=== PATIENT | male | born 1955 | race Caucasian/White ===

== ENCOUNTER 2018-03-10 10:13 | Emergency (ER) | payer BC ==
[2018-03-10] MEDS ORDERED: Ketorolac 30 MG/ML SDV IM ONE (10:21)
--- NOTE | 2018-03-10 10:26 | EDM.PDOC ---
ED HPI GENERAL MEDICAL PROBLEM - General Chief Complaint: General Stated Complaint: LEFT WRIST PAIN AND SWOLLEN Time Seen by Provider: 03/10/18 10:15 Source of Information: Reports: Patient, Family History Limitations: Reports: No Limitations - History of Present Illness INITIAL COMMENTS - FREE TEXT/NARRATIVE: Devin comes into [facility] ED with a tender, swollen, and painful L wrist over the past 24 hrs. There is no injury hx. He did start a new medication yesterday for CA of Prostate. He also recalls a swollen wrist about 10 years ago, suspected gout. He took Ibuprofen last pm without relief. - Related Data Allergies Allergy/AdvReac Type Severity Reaction Status Date / Time No Known Allergies Allergy Verified 03/10/18 11:05 Home Meds: Home Meds Indomethacin [Indocin] 25 mg PO BID #20 cap 03/10/18 [Rx] Tamsulosin [Tamsulosin 24 Hr] 0.4 mg PO DAILY 03/10/18 [History] Past Medical History Oncologic (Cancer) History: Reports: Prostate Review of Systems - Review of Systems Review Of Systems: ROS reveals no pertinent complaints other than HPI. ED EXAM, GENERAL - Physical Exam Exam: See Below Exam Limited By: No Limitations General Appearance: Alert, WD/WN, Mild Distress Head: Normocephalic Neck: Normal Inspection, Supple, Non-Tender, Full Range of Motion Respiratory/Chest: Lungs Clear, Normal Breath Sounds Cardiovascular: Regular Rate, Rhythm, No Murmur Back Exam: Normal Inspection Extremities: Joint Swelling (L wrist), Limited Range of Motion (L wrist), Increased Warmth, Redness Neurological: Alert, Oriented, CN II-XII Intact, Normal Cognition, Normal Gait, No Motor/Sensory Deficits Psychiatric: Normal Affect, Normal Mood Skin Exam: Warm, Dry, Intact, Erythema (L wirst), Increased Warmth Lymphatic: No Adenopathy Course - Vital Signs Text/Narrative:: I reviewed x rays of L wrist, no diagnostic abnormality. Gout or psuedogout is suspected. I administered Toradol 30 mg IM before discharge. Last Recorded V/S: Last Vital Signs Temp 36.4 C 03/10/18 10:40 Pulse 76 03/10/18 10:40 Resp 18 03/10/18 10:40 BP 135/76 03/10/18 10:40 Pulse Ox 100 03/10/18 10:40 - Orders/Labs/Meds Orders: Active Orders 24 hr Category Date Time Status Wrist Comp Min 3V Lt [CR] Stat Exams 03/10/18 10:19 Taken URIC ACID [CHEM] Stat Lab 03/10/18 10:45 Ordered Labs: Laboratory Tests 03/10/18 03/10/18 Range/Units 10:45 10:45 WBC 10.7 (4.5-12.0) X10-3/uL RBC 4.66 (4.30-5.75) x10(6)uL Hgb 15.0 (11.5-15.5) g/dL Hct 43.3 (30.0-51.3) % MCV 93.0 (80-96) fL MCH 32.2 (27.7-33.6) pg MCHC 34.6 (32.2-35.4) g/dL RDW 13.3 (11.5-15.5) % Plt Count 160 (125-369) X10(3)uL MPV 9.9 (7.4-10.4) fL Add Manual Diff Yes Neutrophils % (Manual) 82 (46-82) % Lymphocytes % (Manual) 15 (13-37) % Monocytes % (Manual) 3 L (4-12) % Uric Acid 6.6 H (2.6-6.0) mg/dL Meds: Medications Discontinued Medications Generic Name Dose Route Start Last Admin Trade Name Freq PRN Reason Stop Dose Admin Ketorolac Tromethamine 30 mg 03/10/18 10:21 03/10/18 10:46 Toradol IM 03/10/18 10:22 30 mg ONETIME ONE Administration Departure - Departure Time of Disposition: 11:10 Disposition: Home, Self-Care 01 Condition: Fair Clinical Impression: Painful wrist Qualifiers: Laterality: left Qualified Code(s): M25.532 - Pain in left wrist - Discharge Information Referrals: PCP,Not In Area [Primary Care Provider] - Forms: ED Department Discharge - Problem List & Annotations (1) Painful wrist SNOMED Code(s): 03911941 Code(s): M25.539 - PAIN IN UNSPECIFIED WRIST Status: Acute Current Visit : Yes Annotation/Comment:: L wrist pain, monoarticular arthropathy, probable gout or pseudogout. I dispensed Indocin 25 mg cap taken 1 or 2 caps tid prn for pain and swelling, rest, and follow up if sxs unimproved. Qualifiers: Laterality: left Qualified Code(s): M25.532 - Pain in left wrist - Problem List Review Problem List Initiated/Reviewed/Updated: Yes - My Orders Last 24 Hours: My Active Orders 03/10/18 10:19 Wrist Comp Min 3V Lt [CR] Stat 03/10/18 10:45 URIC ACID [CHEM] Stat - Assessment/Plan Last 24 Hours: My Active Orders 03/10/18 10:19 Wrist Comp Min 3V Lt [CR] Stat 03/10/18 10:45 URIC ACID [CHEM] Stat Plan: Follow up with PCP if needed.
--- NOTE | 2018-03-10 11:11 | CR ---
INDICATION: Swollen left wrist, no injury history. LEFT WRIST: Three views of the left wrist were obtained 03/10/2018 - no comparisons. Slight prominence of the volar fat pad raises question of a minimal wrist joint effusion. This should be correlated clinically. Minimal degenerative change is suggested at the navicular multangular joints. Calcific density is suggested along the lateral aspect of the ulnar styloid. It could represent a tiny shard of bone from a previous chip fracture fragment that did not unite or possibly dystrophic soft tissue calcification from previous injury. No chondrocalcinosis or subchondral cystic changes are identified. If early rheumatoid arthritis is suspected clinically, additional examination may be warranted, such as nuclear bone imaging or possibly MRI. MTDD
== END 2018-03-10 11:17 | disposition home or self-care (01) ==
LOC: FB.ED 10:13
DX: M25.532 Pain in left wrist (principal)
CPT/HCPCS: 36415; 73110; 84550; 85025; 96372; 99283; J1885